=== PATIENT | female | born 1995 | race Caucasian/White ===

== ENCOUNTER 2019-03-03 05:35 | Emergency (ER) | payer BC, SELFPAY ==
[2019-03-03 06:17] LABS: Absolute Lymphocytes (CBC) 3.1 K/uL (0.7-4.9); Absolute Monocytes 0.7 K/uL (0.1-1.3); Absolute Neutrophil 6.6 K/uL (1.8-8.0); Basophils % 0.3 % (0-1.3); Eosinophils % 1.1 % (0-4.4); Hematocrit 36.4 % (36.0-45.0); Lymphocytes % 29.5 % (15.3-44.8); MPV 7.8 fL (7.6-11.3); Monocytes % 6.6 % (3.3-12.3); RBC Red Blood Cell Count 3.98 M/uL (3.86-4.86)
[2019-03-03] MEDS ORDERED: ACETAMINOPHEN 500 MG TAB ONE (06:34)
[2019-03-03 07:11] LABS: BUN Blood Urea Nitrogen 14 mg/dL (7-18); Bicarbonate 23 mmol/L (21-32); Glucose Level 108 mg/dL (74-106); HCG, Quantitative 7791 mIU/mL (1-3); Potassium 3.4 mmol/L (3.5-5.1); Sodium Level 144 mmol/L (136-145)
[2019-03-03 08:29] LABS: Urine Blood 3+ (NEG); Urine Glucose NEGATIVE (NEG); Urine Protein TRACE (NEG); Urine Specific Gravity 1.025 (1.005-1.030)
[2019-03-03] MEDS ORDERED: POTASSIUM 25 MEQ EFFERV TAB ONE (08:30)
[2019-03-03] MEDS ORDERED: HYDROCODONE/APAP 7.5/325 MG TAB ONE (08:32)
--- NOTE | 2019-03-03 08:44 | ER ---
Nurse's Notes [facility] Name: Lorena Corral Age: 23 yrs Sex: Female : 1995 Arrival Date: 03/03/2019 Time: 05:40 Bed 8 Private MD: Diagnosis: Threatened Presentation: 03/03 05:46 Presenting complaint: Patient states: she is 6 weeks and started having bb abdominal cramping with vaginal bleeding last night which has worsened this morning pt also had a miscarriage in August 2018. Transition of care: patient was not received from another setting of care. Onset of symptoms was March 02, 2019. Risk Assessment: Do you want to hurt yourself or someone else? Patient reports no desire to harm self or others. Initial Sepsis Screen: Does the patient meet any 2 criteria? No. Patient's initial sepsis screen is negative. Does the patient have a suspected source of infection? No. Patient's initial sepsis screen is negative. Care prior to arrival: None. 05:46 Method Of Arrival: Ambulatory bb 05:46 Acuity: CARLOS 3 bb WELD FITTER: 05:50 2, Full Term 0, Premature 0, 1, Living 0, LMP 12/23/2018, bb Verified, EDC 09/29/2019, Gestational age from LMP: 10 weeks 0 days 06:15 2, 1, Living 0, LMP 12/23/2018, Verified, EDC 09/29/2019, cp Gestational age from LMP: 10 weeks 1 day Historical: - Allergies: 05:50 No Known Allergies; bb - Home Meds: 05:50 Vitamin Oral [Active]; bb - PMHx: 05:50 miscarriage; bb - PSHx: 05:50 None; bb - Immunization history:: Adult Immunizations up to date. - Social history:: Smoking status: Patient/guardian denies using tobacco. - Ebola Screening: : No symptoms or risks identified at this time. Screenin:04 Abuse screen: Denies threats or abuse. Nutritional screening: No deficits noted. ea Tuberculosis screening: No symptoms or risk factors identified. Fall Risk None identified. Assessment: 06:00 Obstetrical Assessment: General assessment: awake and alert. General: Appears ea uncomfortable, Behavior is calm, cooperative, appropriate for age. Pain: Complains of pain in low back area, left low back, right low back and suprapubic area. Neuro: Level of Consciousness is awake, alert, obeys commands, Oriented to person, place, time, situation. Cardiovascular: Patient's skin is warm and dry. Respiratory: Airway is patent Respiratory effort is even, unlabored, Respiratory pattern is regular, symmetrical. GI: No signs and/or symptoms were reported involving the gastrointestinal system. : Reports vaginal bleeding that is bright red, heavy flow. Derm: Skin is dry, Skin is pale, Skin temperature is warm. 07:28 Reassessment: Patient appears in no apparent distress at this time. No changes from sv previously documented assessment. Patient and/or family updated on plan of care and expected duration. Pain level reassessed. Patient is alert, oriented x 3, equal unlabored respirations, skin warm/dry/pink. 08:30 Reassessment: Patient appears in no apparent distress at this time. No changes from sv previously documented assessment. Patient and/or family updated on plan of care and expected duration. Pain level reassessed. Patient is alert, oriented x 3, equal unlabored respirations, skin warm/dry/pink. Vital Signs: 05:50 BP 138 / 81; Pulse 94; Resp 16 S; Temp 97.7(O); Pulse Ox 100% on R/A; Weight 68.04 kg bb (R); Height 5 ft. 7 in. (170.18 cm) (R); Pain 7/10; 06:18 BP 138 / 81; Pulse 81; Resp 18; Pulse Ox 100% on R/A; ea 07:16 BP 117 / 83; Pulse 70; Resp 18; Pulse Ox 100% ; sv 08:03 BP 115 / 74; Pulse 66; Resp 16; Pulse Ox 100% ; sv 05:50 Body Mass Index 23.49 (68.04 kg, 170.18 cm) bb ED Course: 05:40 Patient arrived in ED. es 05:49 Triage completed. bb 05:50 Arm band placed on Patient placed in an exam room, on a stretcher, on pulse oximetry. bb Family accompanied patient. 06:03 Nanci Stanford, RN is Primary Nurse. ea 06:05 Patient has correct armband on for positive identification. Placed in gown. Bed in low ea position. Call light in reach. 06:05 Initial lab(s) drawn, by me, sent to lab. Inserted saline lock: 20 gauge in right aa1 antecubital area, using aseptic technique. Blood collected. 06:08 Ephraim Duarte PA is PHCP. cp 06:08 Curtis Beavers MD is Attending Physician. cp 07:15 Report given to Karen GRIGGS. ea 07:28 Primary Nurse role handed off by Nanci Stanford RN sv 07:28 Kandi Mullins RN is Primary Nurse. sv 07:37 US Transvaginal Ob In Process Unspecified. EDMS 08:42 Ephraim Ferrell MD is Attending Physician. cp 08:54 No provider procedures requiring assistance completed. IV discontinued, intact, hb bleeding controlled, No redness/swelling at site. Pressure dressing applied. Administered Medications: 06:24 Drug: Tylenol 1000 mg Route: PO; ea 07:00 Follow up: Response: No adverse reaction; Marked relief of symptoms ea 08:29 Drug: Potassium Effervescent Tablet 25 mEq Route: PO; sv 08:29 Drug: Hydrocodone-Acetaminophen (7.5 mg-325 mg) 1 tabs Route: PO; sv Outcome: 08:43 Discharge ordered by MD. cp 08:54 Discharged to home ambulatory, with significant other. hb 08:54 Condition: stable 08:54 Discharge instructions given to patient, significant other, Instructed on discharge instructions, follow up and referral plans. medication usage, Demonstrated understanding of instructions, follow-up care, medications, Prescriptions given X 1. 08:58 Patient left the ED. hb Signatures: Dispatcher [employer] [facility] Kandi Mullins RN RN Ciara Fuentes RN RN aa1 Kelsie Dahl Brenda, RN RN Ephraim Duarte PA PA cp Baxter, Heather, RN RN Nanci Stanford RN RN ea
--- NOTE | 2019-03-03 08:44 | EDPHYS ---
Physician Documentation [facility] Name: Lorena Corral Age: 23 yrs Sex: Female : 1995 Arrival Date: 03/03/2019 Time: 05:40 Bed 8 Private MD: ED Physician Ephraim Ferrell HPI: 03/03 06:15 This 23 yrs old Female presents to ER via Ambulatory with complaints of cp Vaginal Bleeding, + Preg <12wks. 06:15 The patient presents to the emergency department with vaginal bleeding, with clots. cp 06:15 The estimated gestational age is 6 weeks. cp 06:15 course: care: private OB physician, Ultrasound: the patient had an cp ultrasound, which was normal. Previous pregnancies: in previous pregnancies patient has had. 08:00 Patient reports having ultrasound this past Monday by primary OB that confirmed IUP. cp Noted yolk sac but no FHR observed. Patient reports EGA was 6 weeks. ASSEMBLER TRACTOR: 05:50 2, Full Term 0, Premature 0, 1, Living 0, LMP 12/23/2018, bb Verified, EDC 09/29/2019, Gestational age from LMP: 10 weeks 0 days 06:15 2, 1, Living 0, LMP 12/23/2018, Verified, EDC 09/29/2019, cp Gestational age from LMP: 10 weeks 1 day Historical: - Allergies: 05:50 No Known Allergies; bb - Home Meds: 05:50 Vitamin Oral [Active]; bb - PMHx: 05:50 miscarriage; bb - PSHx: 05:50 None; bb - Immunization history:: Adult Immunizations up to date. - Social history:: Smoking status: Patient/guardian denies using tobacco. - Ebola Screening: : No symptoms or risks identified at this time. ROS: 06:20 Constitutional: Negative for body aches, chills, fever, poor PO intake. cp 06:20 Eyes: Negative for injury, pain, redness, and discharge. cp 06:20 ENT: Negative for drainage from ear(s), ear pain, sore throat, difficulty swallowing, difficulty handling secretions. 06:20 Cardiovascular: Negative for chest pain, palpitations. 06:20 Respiratory: Negative for cough, shortness of breath, wheezing. 06:20 Abdomen/GI: Positive for abdominal pain, Negative for vomiting, diarrhea, constipation. 06:20 : Positive for vaginal bleeding, Negative for urinary symptoms. 06:20 Skin: Negative for rash. 06:20 Neuro: Negative for altered mental status, headache, weakness. 06:20 All other systems are negative. Exam: 06:30 Constitutional: The patient appears in no acute distress, alert, awake, non-toxic, well cp developed, well nourished. 06:30 Head/Face: Normocephalic, atraumatic. cp 06:30 Eyes: Periorbital structures: appear normal, Conjunctiva: normal, no exudate, no injection, Sclera: no appreciated abnormality, Lids and lashes: appear normal, bilaterally. 06:30 ENT: External ear(s): are unremarkable, Nose: is normal, Mouth: Lips: moist, Oral mucosa: moist, Posterior pharynx: is normal, airway is patent, no erythema, no exudate. 06:30 Chest/axilla: Inspection: normal. 06:30 Cardiovascular: Rate: normal, Rhythm: regular. 06:30 Respiratory: the patient does not display signs of respiratory distress, Respirations: normal, no use of accessory muscles, no retractions, no splinting, no tachypnea, labored breathing, is not present, Breath sounds: are clear throughout, no decreased breath sounds, no stridor, no wheezing. 06:30 Abdomen/GI: Inspection: abdomen appears normal, Bowel sounds: active, all quadrants, Palpation: soft, in all quadrants, mild abdominal tenderness, in the right lower quadrant and left lower quadrant, rebound tenderness, is not appreciated, involuntary guarding, is not appreciated. 06:30 Back: pain, is absent, ROM is normal. 06:30 Neuro: Orientation: to person, place \T\ time. Mentation: is normal, Cerebellar function: is grossly normal, Motor: moves all fours, strength is normal, Sensation: is normal, Gait: is steady. Vital Signs: 05:50 BP 138 / 81; Pulse 94; Resp 16 S; Temp 97.7(O); Pulse Ox 100% on R/A; Weight 68.04 kg bb (R); Height 5 ft. 7 in. (170.18 cm) (R); Pain 7/10; 06:18 BP 138 / 81; Pulse 81; Resp 18; Pulse Ox 100% on R/A; ea 07:16 BP 117 / 83; Pulse 70; Resp 18; Pulse Ox 100% ; sv 08:03 BP 115 / 74; Pulse 66; Resp 16; Pulse Ox 100% ; sv 05:50 Body Mass Index 23.49 (68.04 kg, 170.18 cm) bb MDM: 06:00 Differential diagnosis: STD, threatened Ab, inevitable Ab, complete Ab, retained Ab, cp ectopic . 06:13 Patient medically screened. 08:42 Data reviewed: vital signs, nurses notes, lab test result(s), radiologic studies, cp ultrasound, and as a result, I will discharge patient. 08:42 Counseling: I had a detailed discussion with the patient and/or guardian regarding: the cp historical points, exam findings, and any diagnostic results supporting the discharge/admit diagnosis, lab results, radiology results, the need for outpatient follow up, an OB/Gyne specialist, to return to the emergency department if symptoms worsen or persist or if there are any questions or concerns that arise at home. Response to treatment: the patient's symptoms have mildly improved after treatment, and as a result, I will discharge patient. ED course: VSS. Pain improved. Discussed results of labs and US. Patient reports having appt with primary ASSEMBLER TRACTOR next 1-2 days for f/u once returned home. 03/03 05:44 Order name: Quantitative Hcg; Complete Time: 07:12 03/03 07:12 Interpretation: HCGQ 7791; Reviewed. 03/03 05:44 Order name: Abo/rh Typing; Complete Time: 07:12 03/03 07:13 Interpretation: Reviewed. 03/03 05:44 Order name: Basic Metabolic Panel; Complete Time: 07:12 03/03 07:12 Interpretation: Normal except: K 3.4; CL 110; GLUC 108. 03/03 05:44 Order name: CBC with Diff; Complete Time: 06:49 03/03 06:49 Interpretation: Reviewed. 03/03 07:45 Order name: Urine Microscopic Only [facility] 03/03 07:45 Order name: Urine Dipstick--Ancillary (enter results); Complete Time: 08:44 [facility] 03/03 05:44 Order name: Urine Test (obtain specimen); Complete Time: 07:43 03/03 05:44 Order name: IV Saline Lock; Complete Time: 06:09 03/03 05:44 Order name: Labs collected and sent; Complete Time: 06:09 03/03 05:44 Order name: US Transvaginal Ob 03/03 07:45 Order name: Urine --Ancillary (enter results); Complete Time: 08:44 mw2 03/03 05:44 Order name: NPO; Complete Time: 06:09 03/03 05:44 Order name: Urine Dipstick-Ancillary (obtain specimen); Complete Time: 07:43 Administered Medications: 06:24 Drug: Tylenol 1000 mg Route: PO; ea 07:00 Follow up: Response: No adverse reaction; Marked relief of symptoms ea 08:29 Drug: Potassium Effervescent Tablet 25 mEq Route: PO; sv 08:29 Drug: Hydrocodone-Acetaminophen (7.5 mg-325 mg) 1 tabs Route: PO; sv Disposition: 03/04 08:00 Co-signature as Attending Physician, Ephraim Ferrell MD I agree with the assessment and shasta plan of care. Disposition: 03/03/19 08:43 Discharged to Home. Impression: Threatened . - Condition is Stable. - Discharge Instructions: Threatened Miscarriage, Vaginal Bleeding During , First Trimester, Pelvic Rest. - Prescriptions for Vitamin 27- 0.8 mg Oral Tablet - take 1 tablet by ORAL route once daily; 30 tablet. - Medication Reconciliation Form, Thank You Letter, Antibiotic Education, Prescription Opioid Use form. - Follow up: Private Physician; When: 1 - 2 days; Reason: Recheck today's complaints. - Problem is new. - Symptoms have improved. Signatures: Dispatcher [employer] Kandi Haile RN RN sv Anderson, Corey, MD MD cha Ballard, Brenda, RN RN bb Page, Corey, PA PA cp Baxter, Heather, RN RN hb Antunez, Elena, RN RN ea Starr, Gregory, MD MD gs Corrections: (The following items were deleted from the chart) 03/03 08:58 08:43 03/03/2019 08:43 Discharged to Home. Impression: Threatened . Condition hb is Stable. Forms are Medication Reconciliation Form, Thank You Letter, Antibiotic Education, Prescription Opioid Use. Follow up: Private Physician; When: 1 - 2 days; Reason: Recheck today's complaints. Problem is new. Symptoms have improved. cp
--- NOTE | 2019-03-03 09:35 | RAD REPORT ---
EXAM DESCRIPTION: US - Transvaginal OB - 03/03/2019 7:37 am CLINICAL HISTORY: with vaginal bleeding COMPARISON: None. FINDINGS: The uterus measures 9 x 4 x 5 centimeters. The endometrial stripe is heterogeneous measur ing 2.3 centimeters. A gestational sac is not seen. Right ovary is normal in size and echotexture. Left ovary not seen. Right and left adnexa are unremar kable No significant free fluid IMPRESSION: These findings very likely indicate a incomplete . Less likely possibilities inc lude an early IUP in which the gestational sac is not seen an ectopic . This all should be c orrelated clinically and with serial beta HCG levels. Followup endovaginal sonogram in 1 week would luis love helpful
[2019-03-03 09:36] LABS: Urine Bacteria <20 /HPF (<20); Urine Culture Reflex Order REFLEXED; Urine RBC >50 /HPF (NONE SEEN)
== END 2019-03-03 08:58 | disposition home or self-care (01) ==
LOC: ER 05:35
DX: O20.0 Threatened abortion (principal); Z3A.01 Less than 8 weeks gestation of pregnancy
CPT/HCPCS: 36415; 76817; 80048; 81003; 81015; 81025; 84702; 85025; 86900; 86901; 87086; 87088; 99284